=== PATIENT | female | born 1960 | race American Indian/Alaskan Native ===

== ENCOUNTER 2018-02-11 10:00 | Inpatient (IN) | payer BC, OTHER ==
[2018-02-11 10:21] VITALS: BMI 23.5
--- NOTE | 2018-02-11 10:40 | ED PDOC ---
HPI: General Adult Time Seen by Provider: 02/11/18 10:34 Chief Complaint (Nursing): Lower Extremity Problem/Injury Chief Complaint (Provider): left leg pain/back pain History Per: Patient History/Exam Limitations: no limitations Onset/Duration Of Symptoms: Waxing/Waning, Other (worsening pain x 3 months) Have you had recent travel within the past 21 days to any of the following countries: [place], [place], [place] or [place]?: No Current Symptoms Are (Timing): Still Present Severity: Severe Pain Scale Rating Of: 10 Additional Complaint(s): pt p/w + ~ 3 months onset of worsening left lower back pain, with pain intermittently radiating down her left leg, at times completely numb/tingling sensations noted from left knee down throughout to her left foot; pt states over the last 2 months the left leg pain has become more unbearable; pt states she had seen her PCP and was referred to Dr Juárez (neurosurg) for further eval, pt had refused spinal injections/pain management because she did not want to take any pain medications; pt states she has only been taking motrin/advil as needed daily; pt states she has also noted left groin numbness/tingling intermittently, but no urinary/bowel incontinence, no vaginal/rectal numbness/ tingling; pt denied fall/trauma/sick contact, no travel; pt denied Fever/chills/ sweats, no cp/sob/palpitations, no abd pain, no n/v, no urinary/bowel changes, no other complaints; pt was directed by PCP to come to ED for further eval. pt states her pain is severe at > 10/10 PCP: [place] neurosurg: Dr Juárez Past Medical History Reviewed: Historical Data, Nursing Documentation, Vital Signs Vital Signs: Last Vital Signs Temp 98.2 F 02/11/18 16:37 Pulse 74 02/11/18 16:37 Resp 20 02/11/18 16:37 BP 149/77 02/11/18 16:37 Pulse Ox 98 02/11/18 19:44 - Medical History PMH: Gall Bladder Disease (CHOLELITHIASIS), Hypothyroidism Denies: Chronic Kidney Disease - Family History Family History: States: No Known Family Hx - Living Arrangements Living Arrangements: With Family - Social History Current smoker - smoking cessation education provided: Yes Alcohol: None Drugs: Denies - Immunization History Hx Tetanus Toxoid Vaccination: No Hx Influenza Vaccination: No Hx Pneumococcal Vaccination: No - Home Medications Home Medications: Ambulatory Orders Medication Instructions Recorded Multivitamin [Multi-Vitamin Daily] 1 tab PO DAILY 02/11/18 - Allergies Allergies/Adverse Reactions: Allergies Allergy/AdvReac Type Severity Reaction Status Date / Time morphine AdvReac NAUSEA Verified 02/11/18 10:37 Review of Systems ROS Statement: Except As Marked, All Systems Reviewed And Found Negative Constitutional: Negative for: Fever, Chills, Sweats, Weakness Eyes: Negative for: Pain ENT: Negative for: Ear Pain Cardiovascular: Negative for: Chest Pain, Palpitations, Orthopnea Respiratory: Negative for: Cough, Shortness of Breath Gastrointestinal: Negative for: Nausea, Vomiting, Abdominal Pain Genitourinary Female: Negative for: Dysuria Musculoskeletal: Positive for: Back Pain, Leg Pain Skin: Negative for: Rash Neurological: Negative for: Weakness, Headache Physical Exam - Reviewed Nursing Documentation Reviewed: Yes Vital Signs Reviewed: Yes (elevated BP) - Physical Exam Appears: Positive for: Well (alert/awake, GCS = 15, oriented x 3, uncomfortable , moderate distress due to left back/leg pain, cooperative, interactive, follows command with ease), Non-toxic, Uncomfortable, In Acute Distress Head Exam: Positive for: ATRAUMATIC, NORMAL INSPECTION, NORMOCEPHALIC Skin: Positive for: Normal Color (cap refill < 1sec, no ulcerations, no petechiae, no rashes, no gross pallor), Warm, Dry. Negative for: Rash Eye Exam: Positive for: Normal appearance, EOMI, PERRL. Negative for: Nystagmus ENT: Positive for: Normal ENT Inspection Neck: Positive for: Normal, Painless ROM, Supple, Trachea Midline. Negative for : Decreased ROM Cardiovascular/Chest: Positive for: Regular Rate, Rhythm, Chest Non Tender, Other (+S1, +S2, no m/r/r). Negative for: Edema Respiratory: Positive for: Normal Breath Sounds, Other (CTA b/l, no w/r/r, no accessory muscle use noted, no tachypenia) Gastrointestinal/Abdominal: Positive for: Normal Exam, Bowel Sounds, Soft, Other (well ) Back: Positive for: Normal Inspection, Vertebral Tenderness (left lower lumbar tenderness noted), Decreased ROM Extremity: Positive for: Other (+ left SLR at 30degrees, no teresa's sign b/l, strength 5/5 grossly intact b/l, decr ROM to left leg due to pain; +1-2/5 DTR left knee, +2/5 DTR right knee; neurovasc intact b/l, + ambulatory but with difficulty; + limping when walking). Negative for: Pedal Edema, Deformity DTR - Knee (R): 2+ DTR - Knee (L): 1+ Neurologic/Psych: Positive for: Alert, hardwood floor sander II-XII, Oriented, Other (alert/awake , GCS = 15, oriented x 3, CNII-XII WNL, no facial asymmetries) - Laboratory Results Result Diagrams: 02/11/18 11:05 02/11/18 11:05 - ECG ECG: Positive for: Interpreted By Me, Viewed By Me Interpretation Of Abn EKG: NSR at 65 bpm, normal axis, no ectopy, abnl ST changes noted to V1-4, likely early repolorization, voltage criteria LVH; ABNL EKG; unchanged compare with old ekg 08/2017 O2 Sat by Pulse Oximetry: 98 Pulse Ox Interpretation: Normal - Radiology X-Ray: Interpreted by Me, Viewed By Me, Read By Radiologist - Progress ED Course And Treament: 1045am - pt is offered narcotics for pain control, currently refused 1050am - I spoke to Dr Gu, made aware, agrees with admission; would like labs and will evaluate patient in the hospital given patient persistent and intractable lower back pain, will recommend for admission pt is made aware of the medical recommendation pt agrees with admission 1111am HISTORY: weakness, intractable left leg pain COMPARISON: No prior. TECHNIQUE: Chest PA and lateral FINDINGS: LUNGS: No active pulmonary disease. PLEURA: No significant pleural effusion identified. No pneumothorax apparent. CARDIOVASCULAR: No radiographic findings to suggest acute or significant cardiovascular disease. OSSEOUS STRUCTURES: No significant abnormalities. VISUALIZED UPPER ABDOMEN: Normal. OTHER FINDINGS: None. IMPRESSION: No active disease. Re-evaluation Time: 10:55 Condition: Re-examined, Unchanged Medical Decision Making Medical Decision Making: Impression: intractable back pain i have consider all the differential diagnosis regarding pt's chief medical complaints/clinical findings, including but are not limited to: intractable back pain A/P: intractable back pain - labs - ua - supportive care - observe/reevaluation Disposition - Clinical Impression Clinical Impression: Intractable back pain, Elevated blood pressure reading, Ambulatory dysfunction - Patient ED Disposition Is Patient to be Admitted: Yes Discussed With : Lester Gu Doctor Will See Patient In The: ED Counseled Patient/Family Regarding: Studies Performed, Diagnosis, Need For Followup, Rx Given - Disposition Disposition Time: 10:40 Condition: STABLE - Pt Status Changed To: Hospital Disposition Of: Inpatient - Admit Certification Admit to Inpatient:: After my assessment, the patient will require hospitalization for at least two midnights. This is because of the severity of symptoms shown, intensity of services needed, and/or the medical risk in this patient being treated as an outpatient.
--- NOTE | 2018-02-11 11:12 | RAD ---
Date of service: 02/11/2018 HISTORY: weakness, intractable left leg pain COMPARISON: No prior. TECHNIQUE: Chest PA and lateral FINDINGS: LUNGS: No active pulmonary disease. PLEURA: No significant pleural effusion identified. No pneumothorax apparent. CARDIOVASCULAR: No radiographic findings to suggest acute or significant cardiovascular disease. OSSEOUS STRUCTURES: No significant abnormalities. VISUALIZED UPPER ABDOMEN: Normal. OTHER FINDINGS: None. IMPRESSION: No active disease.
[2018-02-11 11:22] LABS: BASO # 0.2 K/uL (0.0-0.2); BASO % 1.7 % (0.0-2.0); EOS # 0.2 K/uL (0.0-0.7); EOS % 1.2 % (0.0-4.0); HEMOGLOBIN 13.2 g/dL (12.0-16.0); LYMPH # 1.8 K/uL (1.0-4.3); LYMPH % 14.6 % (20.0-40.0); MEAN CELL VOLUME 104.7 fl (81.0-99.0); MEAN CORPUSCULAR HEMOGLOBIN 35.2 pg (27.0-31.0); MEAN CORPUSCULAR HGB CONC 33.6 g/dL (33.0-37.0); MEAN PLATELET VOLUME 10.2 fl (7.2-11.7); MONO # 1.2 K/uL (0.0-0.8); MONO % 9.8 % (0.0-10.0); NEUT # 9.2 K/uL (1.8-7.0); NEUT % 72.7 % (50.0-75.0); RBC 3.74 Mil/uL (3.80-5.20); RED CELL DISTRIBUTION WIDTH 16.5 % (11.5-14.5); WHITE BLOOD COUNT 12.6 K/uL (4.8-10.8)
[2018-02-11 11:34] LABS: PARTIAL THROMBOPLASTIN TIME 29.8 Seconds (25.6-37.1); PROTHROMBIN TIME 11.1 Seconds (9.8-13.1)
[2018-02-11 11:40] LABS: ALB/GLOB RATIO 1.4 (1.0-2.1); ALBUMIN 4.6 g/dL (3.5-5.0); ALT/SGPT 26 U/L (9-52); AST/SGOT 19 U/L (14-36); BLOOD UREA NITROGEN 14 mg/dl (7-17); CALCIUM 9.8 mg/dL (8.4-10.2); GFR AFRICAN-AMERICAN > 60; GFR NON-AFRICAN AMERICAN 57
--- NOTE | 2018-02-11 12:28 | CP.PCM.HP ---
History of Present Illness - History of Present Illness History of Present Illness: CC: low back pain HPI: 57 YO Female with PMHx of psoriasis and low back pain presents to [facility] ED for worsening of low back pain. Pt states that her low back pain started a few months ago, no trauma or no preceding events and has persisted since onset. Pt states that her pain radiates down her L leg, and pain is worse when sitting down. Endorsing numbness and tingling in the R pelvis, hip and down the leg. Pt taking Motrin for pain prn. No urinary or fecal incontinance. Denies dyspnea, chest pain, palpatations, n/v/d/c and fevers. PMHx: psoriasis (on laser therapy), hypothyroidism (not on any meds controlled per pt), HTN (meds d/tegan by MD a few months ago) Surghx: SH: , smoking 20+years, 0.5pack a day, ETOH social and denies illicit drug use Allergies: Morphine-pain and rash Present on Admission - Present on Admission Any Indicators Present on Admission: No Review of Systems - Constitutional Constitutional: absent: Chills, Fever - Cardiovascular Cardiovascular: absent: Chest Pain, Dyspnea, Palpitations - Respiratory Respiratory: absent: Cough, Dyspnea - Gastrointestinal Gastrointestinal: absent: Abdominal Pain - Musculoskeletal Musculoskeletal: Back Pain, Radiating Pain into Limb, Tingling - Neurological Neurological: absent: Dizziness, Syncope Past Patient History - Infectious Disease Hx of Infectious Diseases: None - Tetanus Immunizations Tetanus Immunization: Unknown - Past Medical History & Family History Past Medical History?: Yes - Past Social History Smoking Status: Light Smoker < 10 Cigarettes Daily Alcohol: None Drugs: Denies - CARDIAC Hx Cardiac Disorders: No - PULMONARY Hx Respiratory Disorders: Yes (SMOKES 1 PACK FOR 3 D) - NEUROLOGICAL Hx Neurological Disorder: No - HEENT Hx HEENT Problems: No - RENAL Hx Chronic Kidney Disease: No - ENDOCRINE/METABOLIC Hx Hypothyroidism: Yes - HEMATOLOGICAL/ONCOLOGICAL Hx Blood Disorders: No - INTEGUMENTARY Hx Dermatological Problems: Yes Hx Psoriasis: Yes - MUSCULOSKELETAL/RHEUMATOLOGICAL Hx Musculoskeletal Disorders: No Hx Falls: No - GASTROINTESTINAL Hx Gall Bladder Disease: Yes (CHOLELITHIASIS) - GENITOURINARY/GYNECOLOGICAL Hx Genitourinary Disorders: No - PSYCHIATRIC Hx Psychophysiologic Disorder: No Hx Substance Use: No - SURGICAL HISTORY Hx Surgeries: Yes Other/Comment: left toe sx, ingrown toenail 2015-EXOSTOSIS - ANESTHESIA Hx Anesthesia: Yes Hx Anesthesia Reactions: No Hx Malignant Hyperthermia: No Meds Allergies/Adverse Reactions: Allergies Allergy/AdvReac Type Severity Reaction Status Date / Time morphine AdvReac NAUSEA Verified 02/11/18 10:37 Physical Exam - Constitutional Appears: No Acute Distress - Head Exam Head Exam: ATRAUMATIC - Eye Exam Eye Exam: EOMI, Normal appearance - ENT Exam ENT Exam: Mucous Membranes Moist - Respiratory Exam Respiratory Exam: Clear to Auscultation Bilateral, NORMAL BREATHING PATTERN. absent: Wheezes - Cardiovascular Exam Cardiovascular Exam: REGULAR RHYTHM, +S1, +S2 - GI/Abdominal Exam GI & Abdominal Exam: Normal Bowel Sounds, Soft. absent: Tenderness - Extremities Exam Extremities exam: Positive for: normal inspection. Negative for: calf tenderness, pedal edema Additional comments: Straight leg pos in the L - Back Exam Back exam: NORMAL INSPECTION, vertebral tenderness (mild tenderness to palpation of the lumar spine, no skin changes. ). absent: muscle spasm, paraspinal tenderness, rash noted - Neurological Exam Neurological exam: Alert, Oriented x3 Results - Vital Signs Recent Vital Signs: Last Vital Signs Temp 98.2 F 02/11/18 10:21 Pulse 77 02/11/18 10:21 Resp 16 02/11/18 10:21 BP 187/81 H 02/11/18 10:21 Pulse Ox 98 02/11/18 12:06 - Labs Result Diagrams: 02/11/18 11:05 02/11/18 11:05 Labs: Laboratory Results - last 24 hr 02/11/18 02/11/18 02/11/18 11:05 11:05 11:05 WBC 12.6 H RBC 3.74 L Hgb 13.2 Hct 39.1 MCV 104.7 H MCH 35.2 H MCHC 33.6 RDW 16.5 H Plt Count 249 MPV 10.2 Neut % (Auto) 72.7 Lymph % (Auto) 14.6 L [place] % (Auto) 9.8 Eos % (Auto) 1.2 Baso % (Auto) 1.7 Neut # (Auto) 9.2 H Lymph # (Auto) 1.8 [place] # (Auto) 1.2 H Eos # (Auto) 0.2 Baso # (Auto) 0.2 PT 11.1 INR 1.0 APTT 29.8 Sodium 143 Potassium 3.9 Chloride 108 H Carbon Dioxide 24 Anion Gap 15 BUN 14 Creatinine 1.0 Est GFR ( Amer) > 60 Est GFR (Non-Af Amer) 57 Random Glucose 93 Calcium 9.8 Phosphorus 3.9 Magnesium 1.8 Total Bilirubin 0.5 AST 19 ALT 26 Alkaline Phosphatase 59 Total Protein 7.8 Albumin 4.6 Globulin 3.2 Albumin/Globulin Ratio 1.4 Blood Type Antibody Screen BBK History Checked 02/11/18 11:05 WBC RBC Hgb Hct MCV MCH MCHC RDW Plt Count MPV Neut % (Auto) Lymph % (Auto) [place] % (Auto) Eos % (Auto) Baso % (Auto) Neut # (Auto) Lymph # (Auto) [place] # (Auto) Eos # (Auto) Baso # (Auto) PT INR APTT Sodium Potassium Chloride Carbon Dioxide Anion Gap BUN Creatinine Est GFR ( Amer) Est GFR (Non-Af Amer) Random Glucose Calcium Phosphorus Magnesium Total Bilirubin AST ALT Alkaline Phosphatase Total Protein Albumin Globulin Albumin/Globulin Ratio Blood Type O NEGATIVE Antibody Screen Negative BBK History Checked No verified bt Assessment & Plan (1) Radiculopathy Status: Chronic (2) Elevated blood pressure reading Status: Acute (3) Intractable back pain Status: Acute - Assessment and Plan (Free Text) Assessment: Assessment/Plan: 57 YO Female with PMHx of psoriasis, HTN, hypothyroidism, radiculopathy, is admitted for acute on chronic low back pain. -plan as order -pain management as needed -blood work sig for leukocytosis without fever -VS sig for elevated bp, likely 2/2 to pain, cont to monitor may be antihypertensive if remain elevated -neurosurgery consulted -CXR no acute changes -EKG read by me no acute ST changes, sinus with rate of 63 -Pt is currently medically stable
--- NOTE | 2018-02-11 15:16 | CARD ---
APPROVED REPORT Date of service: 02/11/2018 EKG Measurement Heart [id number] <Conclusion> Normal sinus rhythm with sinus arrhythmia Voltage criteria for left ventricular hypertrophy Abnormal ECG
[2018-02-11] MEDS ORDERED: Sodium Chloride 0.9% 1,000 ML IV SCH (23:50)
[2018-02-12] MEDS ORDERED: Propofol 10 mg/ml Inj (20 ML) ONE (07:15)
[2018-02-12] MEDS ORDERED: ePHEDrine 50 mg/ml Inj ONE (07:15)
[2018-02-12] MEDS ORDERED: Succinylcholine 200 mg/10 ml Inj IV ONE (07:16)
[2018-02-12] MEDS ORDERED: Rocuronium 10 mg/ml (5 ml) ONE (07:16)
[2018-02-12] MEDS ORDERED: Midazolam 2 MG/2 ML VIAL ONE (07:16)
[2018-02-12] MEDS ORDERED: Lidocaine 4% (Laryng-O-Jet) Kit MM ONE (07:17)
[2018-02-12] MEDS ORDERED: GELATIN SPONGE,ABSORB/PORCINE 1 EACH SPONGE TP ONE (07:19)
[2018-02-12] MEDS ORDERED: Thrombin Topical 5,000 Int Units Spray Kit ONE (07:19)
[2018-02-12] MEDS ORDERED: Lactated Ringer's 1,000 ML IV ONE (07:42)
--- NOTE | 2018-02-12 07:55 | CP.PCM.CON ---
History of Present Illness - History of Present Illness History of Present Illness: Longstanding back pain with acute exacerbation recently. daily activities are severely limited. Ambulation is limited due to pain and gait disturbances from pain. admits to weakness, radiculopathy and paresthesias Also admits to some urinary hesitancy but not incontinence. denies bowel incontinence. Past Patient History - Infectious Disease Hx of Infectious Diseases: None - Tetanus Immunizations Tetanus Immunization: Unknown - Past Medical History & Family History Past Medical History?: Yes - Past Social History Alcohol: None Drugs: Denies - CARDIAC Hx Cardiac Disorders: No - PULMONARY Hx Respiratory Disorders: Yes (SMOKES 1 PACK FOR 3 D) - NEUROLOGICAL Hx Neurological Disorder: No - HEENT Hx HEENT Problems: No - RENAL Hx Chronic Kidney Disease: No - ENDOCRINE/METABOLIC Hx Hypothyroidism: Yes - HEMATOLOGICAL/ONCOLOGICAL Hx Blood Disorders: No - INTEGUMENTARY Hx Dermatological Problems: Yes Hx Psoriasis: Yes - MUSCULOSKELETAL/RHEUMATOLOGICAL Hx Musculoskeletal Disorders: Yes Hx Back Pain: Yes Hx Falls: No - GASTROINTESTINAL Hx Gall Bladder Disease: Yes (CHOLELITHIASIS) - GENITOURINARY/GYNECOLOGICAL Hx Genitourinary Disorders: No - PSYCHIATRIC Hx Psychophysiologic Disorder: No Hx Substance Use: No - SURGICAL HISTORY Hx Surgeries: Yes Other/Comment: left toe sx, ingrown toenail 2015-EXOSTOSIS - ANESTHESIA Hx Anesthesia: Yes Hx Anesthesia Reactions: No Hx Malignant Hyperthermia: No Has any member of the family had a problem w/ anesthesia?: No Meds Allergies/Adverse Reactions: Allergies Allergy/AdvReac Type Severity Reaction Status Date / Time morphine AdvReac NAUSEA Verified 02/11/18 10:37 - Medications Medications: Current Medications Acetaminophen (Tylenol 325mg Tab) 650 mg PO Q6 PRN PRN Reason: Pain, Mild (1-3) Sodium Chloride (Sodium Chloride 0.9%) 1,000 mls @ 120 mls/hr IV .Q8H20M JAMES Stop: 02/12/18 13:14 Last Admin: 02/12/18 00:01 Dose: 120 mls/hr Multivitamins/Minerals (Therapeutic-M Tab) 1 tab PO DAILY JAMES Physical Exam - Neurological Exam Additional comments: A&Ox3 CN intact MCCABE severely antalgic gait left IP: 4/5, quad: 4/5 HS: 4/5, PF and DF 5/5 sensation decreased to LT all throughout LLE positive SLR on left DTR 2+ on right pain ilicted throughout exam Results - Vital Signs Recent Vital Signs: Last Vital Signs Temp 97.9 F 02/12/18 00:12 Pulse 62 02/12/18 01:59 Resp 18 02/12/18 00:12 BP 196/81 H 02/12/18 01:59 Pulse Ox 95 02/12/18 00:12 - Labs Result Diagrams: 02/11/18 11:05 02/11/18 11:05 Labs: Laboratory Results - last 24 hr 02/11/18 02/11/18 02/11/18 11:05 11:05 11:05 WBC 12.6 H RBC 3.74 L Hgb 13.2 Hct 39.1 MCV 104.7 H MCH 35.2 H MCHC 33.6 RDW 16.5 H Plt Count 249 MPV 10.2 Neut % (Auto) 72.7 Lymph % (Auto) 14.6 L [place] % (Auto) 9.8 Eos % (Auto) 1.2 Baso % (Auto) 1.7 Neut # (Auto) 9.2 H Lymph # (Auto) 1.8 [place] # (Auto) 1.2 H Eos # (Auto) 0.2 Baso # (Auto) 0.2 PT 11.1 INR 1.0 APTT 29.8 Sodium 143 Potassium 3.9 Chloride 108 H Carbon Dioxide 24 Anion Gap 15 BUN 14 Creatinine 1.0 Est GFR ( Amer) > 60 Est GFR (Non-Af Amer) 57 Random Glucose 93 Calcium 9.8 Phosphorus 3.9 Magnesium 1.8 Total Bilirubin 0.5 AST 19 ALT 26 Alkaline Phosphatase 59 Total Protein 7.8 Albumin 4.6 Globulin 3.2 Albumin/Globulin Ratio 1.4 Triglycerides Cholesterol LDL Cholesterol Direct HDL Cholesterol TSH 3rd Generation Blood Type Blood Type Confirm Antibody Screen BBK History Checked 02/11/18 02/11/18 02/12/18 11:05 13:09 06:10 WBC RBC Hgb Hct MCV MCH MCHC RDW Plt Count MPV Neut % (Auto) Lymph % (Auto) [place] % (Auto) Eos % (Auto) Baso % (Auto) Neut # (Auto) Lymph # (Auto) [place] # (Auto) Eos # (Auto) Baso # (Auto) PT INR APTT Sodium Potassium Chloride Carbon Dioxide Anion Gap BUN Creatinine Est GFR ( Amer) Est GFR (Non-Af Amer) Random Glucose Calcium Phosphorus Magnesium Total Bilirubin AST ALT Alkaline Phosphatase Total Protein Albumin Globulin Albumin/Globulin Ratio Triglycerides 155 H Cholesterol 174 LDL Cholesterol Direct 82 HDL Cholesterol 41 TSH 3rd Generation 31.10 H Blood Type O NEGATIVE Blood Type Confirm O NEGATIVE Antibody Screen Negative BBK History Checked No verified bt Assessment & Plan - Assessment and Plan (Free Text) Assessment: Called to evaluate patient. Seen and noted to have severe LBP with LLE radiculopathy and sensory changes. She also endorses urinary hesitancy. On imaging, found to have large HNP at L4-L5 Suggested a L4-L5 laminectomy , possible microdiscectomy Plan: Lumbar laminectomy and microdiscectomy Risks, benefits and alternatives explained Risks such as infection, hemorrhage, CSF leak, weakness, sensory changes, failure of surgery, and or need for further surgery explained. Images reviewed with patient , all questions answered. Patient expressed understanding and wishes to proceed with proposed procedure.
[2018-02-12] MEDS ORDERED: Lidocaine 1% w Epi 1:100,000 Inj INJ ONE (08:07)
[2018-02-12 08:17] LABS: SQUAMOUS EPITHIAL 28 /hpf (0-5); URINE BILIRUBIN NEGATIVE (NEGATIVE); URINE BLOOD NEGATIVE (NEGATIVE); URINE CALCIUM OXALATE CRYSTALS MANY /hpf (<OCC); URINE CLARITY CLOUDY (Clear); URINE COLOR AMBER (YELLOW); URINE GLUCOSE (UA) NEG (Normal); URINE LEUKOCYTE ESTERASE NEG Leu/uL (Negative); URINE PROTEIN 30 mg/dL (NEGATIVE)
[2018-02-12] MEDS ORDERED: Dexamethasone 4 mg/1 ml ONE (08:21)
[2018-02-12] MEDS ORDERED: Bupivacaine HCl 0.25% PF (30 ml) Inj ONE (08:23)
[2018-02-12] MEDS ORDERED: HEMOSTATIC MATRIX 10 ML DIS.NEEDLE TOP ONE ×2 (08:33→08:55)
[2018-02-12] MEDS ORDERED: Absorbable Gelatin Sponge Size 12-7 TP ONE (08:41)
[2018-02-12] MEDS ORDERED: Thrombin Topical 5,000 Int Units Spray Kit TOP ONE (08:41)
[2018-02-12] MEDS ORDERED: Neostigmine 1:1000 (1 mg/ml) Inj ONE (08:45)
[2018-02-12] MEDS ORDERED: Bupivacaine HCl 0.25% PF (30 ml) Inj IJ ONE (09:00)
[2018-02-12] MEDS ORDERED: Sodium Chloride 0.9% 1,000 ML IV SCH (09:04)
--- NOTE | 2018-02-12 09:09 | PCM.SURG1 ---
Surgeon's Initial Post Op Note - Surgeon's Notes Surgeon: Rde Juárez MD [employer] Responder: Miguel SCHAEFER , Ashish SCHAEFER Type of Anesthesia: General Endo Anesthesia Administered By: Pantera VANESSA Pre-Operative Diagnosis: Lumbar herniated disc Operative Findings: calcified herniated disc left L4-L5 Post-Operative Diagnosis: same Operation Performed: Left L4-L5 laminotomy, microdiscectomy Specimen/Specimens Removed: none Estimated Blood Loss: EBL {In ML}: 20 Blood Products Given: N/A Drains Used: No Drains Post-Op Condition: Good Date of Surgery/Procedure: 02/12/18 Time of Surgery/Procedure: 07:30
[2018-02-12] MEDS ORDERED: Oxycodone/Acetaminophen 5/325 mg Tab PO PRN (09:15)
[2018-02-12] MEDS ORDERED: DiphenhydrAMINE 50 mg/ml Inj IVP PRN (09:28)
[2018-02-12] MEDS ORDERED: Acetaminophen IV 1,000 MG in IV SUPPLIES 0 ML IVPB ONE (09:45)
[2018-02-12 12:11] VITALS: RESP 20
--- NOTE | 2018-02-12 12:32 | RAD ---
Date of service: 02/12/2018 PROCEDURE: Intraoperative Fluoroscopy. HISTORY: LAMINECTOMY FINDINGS: Fluoroscopic assistance was provided for lumbar laminectomy. Please refer to the operative report from JIM Campos DR, MD. Total fluoroscopic time (continuous mode) utilized during the procedure (seconds) 4.9. Total exam DLP: 1.16 (mGy)
[2018-02-12] MEDS: Multivitamin With Minerals Tab PO SCH (12:42)
--- NOTE | 2018-02-12 14:00 | CP.PCM.PN ---
Subjective - Date & Time of Evaluation Date of Evaluation: 02/12/18 Time of Evaluation: 11:30 - Subjective Subjective: Laminectomy POD0 Pt seen and examined in PACU after surgery. Pr is alert, awake and doing well. BP remains elevated. Objective - Vital Signs/Intake and Output Vital Signs (last 24 hours): Temp Pulse Resp BP Pulse Ox 97.5 F L 64 20 150/77 94 L 02/12/18 13:13 02/12/18 13:13 02/12/18 13:13 02/12/18 13:13 02/12/18 13:13 Intake and Output: 02/12/18 02/12/18 06:59 18:59 Intake Total 1200 Balance 1200 - Medications Medications: Current Medications Amlodipine Besylate (Norvasc) 5 mg PO DAILY [facility] Cyclobenzaprine HCl (Flexeril) 5 mg PO TID PRN PRN Reason: Muscle spasm Last Admin: 02/12/18 12:42 Dose: 5 mg Docusate Sodium (Colace) 100 mg PO BID [facility] Hydralazine HCl (Apresoline) 10 mg IV Q6 PRN PRN Reason: Systolic Blood Pressure Last Admin: 02/12/18 10:50 Dose: 10 mg Hydromorphone HCl (Dilaudid) 0.5 mg IVP Q4 PRN PRN Reason: Pain, severe (8-10) Last Admin: 02/12/18 12:40 Dose: 0.5 mg Cefazolin Sodium 1 gm/ Sodium (Chloride) 100 mls @ 100 mls/hr IVPB Q8 JAMES PRN Reason: Protocol Stop: 02/13/18 17:01 Lactated Ringer's (Lactated Ringer's) 1,000 mls @ 125 mls/hr IV .Q8H [facility] Levothyroxine Sodium (Synthroid) 88 mcg PO DAILY@0630 [facility] Multivitamins/Minerals (Therapeutic-M Tab) 1 tab PO DAILY JAMES Last Admin: 02/12/18 12:42 Dose: 1 tab Ondansetron HCl (Zofran Inj) 4 mg IVP Q6 PRN PRN Reason: Nausea/Vomiting Last Admin: 02/12/18 13:48 Dose: 4 mg Oxycodone/Acetaminophen (Percocet 5/325 Mg Tab) 2 tab PO Q4 PRN PRN Reason: Pain, moderate (4-7) Stop: 02/15/18 09:15 Oxycodone/Acetaminophen (Percocet 5/325 Mg Tab) 1 tab PO Q4 PRN PRN Reason: Pain, Mild (1-3) Stop: 02/15/18 09:16 Pantoprazole Sodium (Protonix Ec Tab) 40 mg PO DAILY JAMES Sennosides (Senokot Tab) 17.2 mg PO HS JAMES - Labs Labs: 02/11/18 11:05 02/11/18 11:05 PT 11.1 Seconds (9.8-13.1) 02/11/18 11:05 INR 1.0 (0.9-1.2) 02/11/18 11:05 APTT 29.8 Seconds (25.6-37.1) 02/11/18 11:05 - Constitutional Appears: No Acute Distress - Eye Exam Eye Exam: EOMI, Normal appearance - ENT Exam ENT Exam: Mucous Membranes Moist - Respiratory Exam Respiratory Exam: Clear to Ausculation Bilateral. absent: Wheezes - Cardiovascular Exam Cardiovascular Exam: REGULAR RHYTHM, +S1, +S2 - GI/Abdominal Exam GI & Abdominal Exam: Soft, Hyperactive Bowel Sounds. absent: Tenderness - Extremities Exam Extremities Exam: Normal Inspection. absent: Calf Tenderness - Neurological Exam Neurological Exam: Alert, Awake Assessment and Plan (1) Radiculopathy Status: Chronic (2) Elevated blood pressure reading Status: Acute (3) Intractable back pain Status: Acute (4) Hypothyroidism Status: Acute (5) Hypertension Status: Chronic - Assessment and Plan (Free Text) Assessment: Assessment/Plan: 57 YO Female with PMHx of psoriasis, HTN, hypothyroidism, radiculopathy, is admitted for acute on chronic low back pain. S/p laminectomy POD0 -plan as order -pain management as needed -VS sig for elevated bp, will add amlodipine 5mg -neurosurgery; OR today -Blood work sig for elevated TSH; will start levo 88mg daily Pt seen and examined with Dr. Gu
[2018-02-12] MEDS: Lactated Ringer's 1,000 ML IV SCH ×2 (15:12→17:31)
[2018-02-12] MEDS: ceFAZolin 1 GM in Sodium Chloride 0.9% 100 ML IVPB SCH (17:25)
[2018-02-12 17:28] VITALS: O2SAT 97
[2018-02-12] MEDS: Oxycodone/Acetaminophen 5/325 mg Tab PO PRN (20:37)
--- NOTE | 2018-02-12 21:00 | OP ---
PROCEDURE DATE: 02/12/2018 PREOPERATIVE DIAGNOSIS: Herniated lumbar disk at L4-L5 on the left side. POSTOPERATIVE DIAGNOSIS: Herniated lumbar disk at L4-L5 on the left side. PROCEDURES: Left L4-L5 hemilaminotomy, medial facetectomy, removal of herniated disk. Fluoroscopy has been used. Microscope has been used. SURGEON: Red Juárez MD ELECTRICAL MANUFACTURING ENGINEER: Miguel Spain, physician blood and plasma laboratory assistant. Miguel Spain who is a physician blood and plasma laboratory assistant helped me to perform the surgery, stayed throughout the case from the beginning to the end. DESCRIPTION OF PROCEDURE: The patient was brought to the operating room, anesthetized with general endotracheal anesthesia, and placed in a prone position on the Indra table. Care was taken to protect all pressure points. Back of the lumbar area was thoroughly prepped and draped in standard sterile manner after marking for the skin incision for lumbar laminectomy at L4-L5. After prepping and draping the area, the skin has been incised. Bleeding skins had been controlled with bipolar oven loader. After using a Bovie oven loader, paraspinal muscles had been detached, attachments of spinous process, lamina of L4-L5 on the left side. A Chey retractor has been applied to alter the facet joint of L4-L5. Confirmation was done with the help of fluoroscopy. Under microscopic magnification and illumination, the lamina of L4-L5 and medial part of the L4-L5 had been drilled. Drilling was continued until top and bottom of the ligamentum flavum had seen. Drilling was also continued on the medial part of the facets until the turn of ligamentum flavum had been seen. Once this had been done, thinned out the lamina, medial part of the facets and ligamentum flavum had been removed, decompressing this area. Nerve root and neural tube retracted medially. There was a large fragment of disk noted. The annulus has been separate by # 11 blade. The annulus has been incised by using #11 blade. By using a fine Kerrison punch, all this partly extruded disk fragment along with the other disk fragment has been removed. Microdiscectomy has been performed, decompressing this area. After that, hemostasis best achieved. Fascia closed interspinous ligaments and spinous process with 1 Vicryl, subcutaneous tissue with 3 Vicryl. Skin has been closed with intradermal 3 Vicryl stitches. The patient tolerated the procedure. After the procedure, mobilized to the recovery room in stabilized condition. Red Juárez MD
[2018-02-13] MEDS: ceFAZolin 1 GM in Sodium Chloride 0.9% 100 ML IVPB SCH ×2 (00:16→09:36)
[2018-02-13] MEDS: Lactated Ringer's 1,000 ML IV SCH ×2 (03:00→09:39)
[2018-02-13] MEDS: Oxycodone/Acetaminophen 5/325 mg Tab PO PRN ×2 (04:25→09:39)
[2018-02-13] MEDS ORDERED: Levothyroxine 88 MCG TAB PO SCH (06:30)
[2018-02-13 07:39] VITALS: BP 153/70; PULSE 62; TEMP 98.4
--- NOTE | 2018-02-13 08:06 | CP.PCM.PN ---
Subjective - Date & Time of Evaluation Date of Evaluation: 02/13/18 Time of Evaluation: 07:15 - Subjective Subjective: Patient was seen and examined at bedside comfortable. Pain is well controlled. No acute events overnight. Objective - Vital Signs/Intake and Output Vital Signs (last 24 hours): Temp Pulse Resp BP Pulse Ox 98.4 F 62 20 153/70 H 97 02/13/18 07:37 02/13/18 07:37 02/13/18 07:37 02/13/18 07:37 02/13/18 07:37 - Medications Medications: Current Medications Amlodipine Besylate (Norvasc) 5 mg PO DAILY [facility] Last Admin: 02/12/18 15:11 Dose: 5 mg Cyclobenzaprine HCl (Flexeril) 5 mg PO TID PRN PRN Reason: Muscle spasm Last Admin: 02/12/18 12:42 Dose: 5 mg Docusate Sodium (Colace) 100 mg PO BID [facility] Last Admin: 02/12/18 17:30 Dose: 100 mg Hydromorphone HCl (Dilaudid) 0.5 mg IVP Q4 PRN PRN Reason: Pain, severe (8-10) Last Admin: 02/12/18 12:40 Dose: 0.5 mg Cefazolin Sodium 1 gm/ Sodium (Chloride) 100 mls @ 100 mls/hr IVPB Q8 JAMES PRN Reason: Protocol Stop: 02/13/18 17:01 Last Admin: 02/13/18 00:16 Dose: 100 mls/hr Lactated Ringer's (Lactated Ringer's) 1,000 mls @ 125 mls/hr IV .Q8H [facility] Last Admin: 02/13/18 03:00 Dose: 125 mls/hr Levothyroxine Sodium (Synthroid) 88 mcg PO DAILY@0630 [facility] Last Admin: 02/13/18 06:37 Dose: Not Given Losartan Potassium (Cozaar) 100 mg PO DAILY [facility] Multivitamins/Minerals (Therapeutic-M Tab) 1 tab PO DAILY [facility] Last Admin: 02/12/18 12:42 Dose: 1 tab Ondansetron HCl (Zofran Inj) 4 mg IVP Q6 PRN PRN Reason: Nausea/Vomiting Last Admin: 02/12/18 13:48 Dose: 4 mg Oxycodone/Acetaminophen (Percocet 5/325 Mg Tab) 2 tab PO Q4 PRN PRN Reason: Pain, moderate (4-7) Stop: 02/15/18 09:15 Last Admin: 02/13/18 04:25 Dose: 2 tab Oxycodone/Acetaminophen (Percocet 5/325 Mg Tab) 1 tab PO Q4 PRN PRN Reason: Pain, Mild (1-3) Stop: 02/15/18 09:16 Pantoprazole Sodium (Protonix Ec Tab) 40 mg PO DAILY JAMES Sennosides (Senokot Tab) 17.2 mg PO HS JAMES Last Admin: 02/12/18 21:42 Dose: 17.2 mg - Labs Labs: 02/11/18 11:05 02/11/18 11:05 PT 11.1 Seconds (9.8-13.1) 02/11/18 11:05 INR 1.0 (0.9-1.2) 02/11/18 11:05 APTT 29.8 Seconds (25.6-37.1) 02/11/18 11:05 - Back Exam Additional comments: Mild swelling, mild tenderness Dressings CDI, no drainage Gross NVI distally b/l pedal pulses intact b/l Assessment and Plan (1) Lumbar disc herniation Assessment & Plan: POD#1 s/p L L4-5 laminotomy doing well -pain controlled -PT/OT WBAT -stable from neurosurgical standpoint to discharge -f/u in office next Saturday -above d/w Dr. Juárez in agreement Status: Acute
[2018-02-13] MEDS ORDERED: Pantoprazole 40 mg EC Tab PO SCH (09:00)
[2018-02-13] MEDS: Multivitamin With Minerals Tab PO SCH (09:40)
--- NOTE | 2018-02-13 12:51 | CP.PCM.DIS ---
Provider - Provider Date of Admission: 02/11/18 10:40 Attending physician: Lester Gu MD Time Spent in preparation of Discharge (in minutes): 20 Diagnosis - Discharge Diagnosis (1) Radiculopathy Status: Chronic (2) Elevated blood pressure reading Status: Acute (3) Intractable back pain Status: Acute (4) Hypothyroidism Status: Acute (5) Hypertension Status: Chronic Hospital Course - Lab Results Lab Results: Most Recent Lab Values WBC 12.6 K/uL (4.8-10.8) H 02/11/18 11:05 RBC 3.74 Mil/uL (3.80-5.20) L 02/11/18 11:05 Hgb 13.2 g/dL (12.0-16.0) 02/11/18 11:05 Hct 39.1 % (34.0-47.0) 02/11/18 11:05 MCV 104.7 fl (81.0-99.0) H 02/11/18 11:05 MCH 35.2 pg (27.0-31.0) H 02/11/18 11:05 MCHC 33.6 g/dL (33.0-37.0) 02/11/18 11:05 RDW 16.5 % (11.5-14.5) H 02/11/18 11:05 Plt Count 249 K/uL (130-400) 02/11/18 11:05 MPV 10.2 fl (7.2-11.7) 02/11/18 11:05 Neut % (Auto) 72.7 % (50.0-75.0) 02/11/18 11:05 Lymph % (Auto) 14.6 % (20.0-40.0) L 02/11/18 11:05 Tift % (Auto) 9.8 % (0.0-10.0) 02/11/18 11:05 Eos % (Auto) 1.2 % (0.0-4.0) 02/11/18 11:05 Baso % (Auto) 1.7 % (0.0-2.0) 02/11/18 11:05 Neut # (Auto) 9.2 K/uL (1.8-7.0) H 02/11/18 11:05 Lymph # (Auto) 1.8 K/uL (1.0-4.3) 02/11/18 11:05 Tift # (Auto) 1.2 K/uL (0.0-0.8) H 02/11/18 11:05 Eos # (Auto) 0.2 K/uL (0.0-0.7) 02/11/18 11:05 Baso # (Auto) 0.2 K/uL (0.0-0.2) 02/11/18 11:05 PT 11.1 Seconds (9.8-13.1) 02/11/18 11:05 INR 1.0 (0.9-1.2) 02/11/18 11:05 APTT 29.8 Seconds (25.6-37.1) 02/11/18 11:05 Sodium 143 mmol/l (132-148) 02/11/18 11:05 Potassium 3.9 MMOL/L (3.6-5.0) 02/11/18 11:05 Chloride 108 mmol/L (98-107) H 02/11/18 11:05 Carbon Dioxide 24 mmol/L (22-30) 02/11/18 11:05 Anion Gap 15 (10-20) 02/11/18 11:05 BUN 14 mg/dl (7-17) 02/11/18 11:05 Creatinine 1.0 mg/dl (0.7-1.2) 02/11/18 11:05 Est GFR ( Amer) > 60 02/11/18 11:05 Est GFR (Non-Af Amer) 57 02/11/18 11:05 Random Glucose 93 mg/dL (65-105) 02/11/18 11:05 Hemoglobin A1c 6.0 % (4.2-6.5) 02/12/18 06:10 Calcium 9.8 mg/dL (8.4-10.2) 02/11/18 11:05 Phosphorus 3.9 mg/dl (2.5-4.5) 02/11/18 11:05 Magnesium 1.8 MG/DL (1.6-2.3) 02/11/18 11:05 Total Bilirubin 0.5 mg/dl (0.2-1.3) 02/11/18 11:05 AST 19 U/L (14-36) 02/11/18 11:05 ALT 26 U/L (9-52) 02/11/18 11:05 Alkaline Phosphatase 59 U/L (38-126) 02/11/18 11:05 Total Protein 7.8 G/DL (6.3-8.2) 02/11/18 11:05 Albumin 4.6 g/dL (3.5-5.0) 02/11/18 11:05 Globulin 3.2 gm/dL (2.2-3.9) 02/11/18 11:05 Albumin/Globulin Ratio 1.4 (1.0-2.1) 02/11/18 11:05 Triglycerides 155 mg/DL (0-149) H 02/12/18 06:10 Cholesterol 174 mg/dL (0-199) 02/12/18 06:10 LDL Cholesterol Direct 82 mg/dL (0-129) 02/12/18 06:10 HDL Cholesterol 41 MG/DL (30-70) 02/12/18 06:10 TSH 3rd Generation 31.10 mIU/ML (0.46-4.68) H 02/12/18 06:10 Urine Color Tracy (YELLOW) 02/12/18 07:00 Urine Clarity Cloudy (Clear) 02/12/18 07:00 Urine pH 5.0 (5.0-8.0) 02/12/18 07:00 Ur Specific Nunda 1.033 (1.003-1.030) H 02/12/18 07:00 Urine Protein 30 mg/dL (NEGATIVE) 02/12/18 07:00 Urine Glucose (UA) Neg mg/dL (Normal) 02/12/18 07:00 Urine Ketones Trace mg/dL (NEGATIVE) 02/12/18 07:00 Urine Blood Negative (NEGATIVE) 02/12/18 07:00 Urine Nitrate Negative (NEGATIVE) 02/12/18 07:00 Urine Bilirubin Negative (NEGATIVE) 02/12/18 07:00 Urine Urobilinogen 2.0 mg/dL (0.2-1.0) H 02/12/18 07:00 Ur Leukocyte Esterase Neg Stoney/uL (Negative) 02/12/18 07:00 Urine RBC (Auto) 15 /hpf (0-3) H 02/12/18 07:00 Ur Squamous Epith Cells 28 /hpf (0-5) H 02/12/18 07:00 Calcium Oxalate Crystal Many /hpf (<OCC) H 02/12/18 07:00 Blood Type O NEGATIVE 02/11/18 11:05 Blood Type Confirm O NEGATIVE 02/11/18 13:09 Antibody Screen Negative 02/11/18 11:05 BBK History Checked No verified bt 02/11/18 11:05 - Hospital Course Hospital Course: 57 YO Female with PMHx of psoriasis, HTN, hypothyroidism, radiculopathy, is admitted for acute on chronic low back pain. Neurosurgery was consulted and pt was found to have L4-L5 lumbar herniated disc. She subsequently underwent L4-L5 Laminectomy, POD 1. Pt is doing well, ambulating, working with PT, tolerating PO diet and remains hemodynamically stable. During the admission, pt was found to have elevated TSH BPs. Started on PO meds for BP control and hypothyroidism. Pt okay per neurosurgery to be d/c home, will follow up with in clinic and with PMD in 1 week. Discharge Exam - Head Exam Head Exam: ATRAUMATIC, NORMAL INSPECTION, NORMOCEPHALIC - Eye Exam Eye Exam: EOMI - ENT Exam ENT Exam: Mucous Membranes Moist - Respiratory Exam Respiratory Exam: Clear to PA & Lateral. absent: Wheezes - Cardiovascular Exam Cardiovascular Exam: REGULAR RHYTHM, +S1, +S2 - GI/Abdominal Exam GI & Abdominal Exam: Normal Bowel Sounds, Soft. absent: Tenderness - Extremities Exam Extremities exam: normal inspection - Neurological Exam Neurological exam: Alert Discharge Plan - Discharge Medications Prescriptions: amLODIPine [Norvasc] 5 mg PO DAILY #30 tab Cyclobenzaprine [Flexeril] 5 mg PO TID PRN #30 tab PRN Reason: Muscle Spasm Levothyroxine [Synthroid] 88 mcg PO DAILY@0630 #30 tab Losartan [Cozaar] 100 mg PO DAILY #30 tab oxyCODONE/Acetaminophen [Percocet 5/325 mg Tab] 1 tab PO Q4 PRN #30 tab PRN Reason: Pain, Moderate (4-7) - Follow Up Plan Condition: STABLE Disposition: HOME/ ROUTINE Instructions: Laminectomy (DC), Postspine Surgery Precautions Additional Instructions: pt . cleared for discharge to [facility] today by and E rx sent to [facility] pharmacy f/u with in 1 week f/u with PMD in [place] in 1 week f/u TSH fx/ labs Referrals: Red Juárez MD [Staff Provider] - Lester Gu MD [Family Provider] -
== END 2018-02-13 13:53 | disposition home or self-care (01) | DRG 520 ==
LOC: H.ER 10:00 → H.ERHOLD 10:40 → H.MEDSURG1 13:31
PROVIDERS: ADMIT Family Medicine; ATTEND Family Medicine
PROC: 0ST20ZZ Resection of Lumbar Vertebral Disc, Open Approach (ICD-10-PCS; principal; 2018-02-12 07:45)
DX: M51.16 Intervertebral disc disorders with radiculopathy, lumbar region (principal); G89.29 Other chronic pain; D72.829 Elevated white blood cell count, unspecified; E03.9 Hypothyroidism, unspecified; I10 Essential (primary) hypertension; F17.200 Nicotine dependence, unspecified, uncomplicated

== ENCOUNTER 2018-05-26 11:07 | Emergency (ER) | payer MEDICAID, OTHER ==
[2018-05-26 11:07] VITALS: BMI 23.5
[2018-05-26 11:31] VITALS: O2SAT 99
[2018-05-26] MEDS ORDERED: Sodium Chloride 0.9% 1,000 ML IV SCH (12:45)
--- NOTE | 2018-05-26 12:48 | ED PDOC ---
HPI: General Adult Time Seen by Provider: 05/26/18 12:07 Chief Complaint (Nursing): Flu-like Symptoms Chief Complaint (Provider): Body pain History Per: Patient History/Exam Limitations: no limitations Onset/Duration Of Symptoms: Days (x3) Additional Complaint(s): 58 year old female, with a past medical history of psoriasis, presents to the ED for evaluation of body aches and diffuse joint pain since Saturday. Patient states that since she lost her insurance 3 months ago, and as a result she has been off psoriasis treatment as she was unable to follow up with a cyber special agent. Patient has not taken medications for symptoms but is requesting prescription medication for itching. Denies fever, nausea, vomiting, diarrhea, abdominal pain, urinary symptoms, chest pain, cough, SOB, recent travel, sick contacts, headache, or dizziness. She does report associated chills. PMD: Pierre Nichols Past Medical History Reviewed: Historical Data, Nursing Documentation, Vital Signs (psoriasis) Vital Signs: Last Vital Signs Temp 98.8 F 05/26/18 11:28 Pulse 92 H 05/26/18 11:28 Resp 18 05/26/18 11:28 BP 167/80 H 05/26/18 11:28 Pulse Ox 99 05/26/18 11:28 - Medical History PMH: Gall Bladder Disease (CHOLELITHIASIS), Hypothyroidism (Thinks its normal now because not on medications) - Surgical History Surgical History: Other surgeries: Lumbar fusion, procedure to toe for ingrown toenail - Family History Family History: States: Unknown Family Hx - Home Medications Home Medications: Ambulatory Orders Medication Instructions Recorded RX: Multivitamin [Multi-Vitamin 1 tab PO DAILY 02/11/18 Daily] RX: Cyclobenzaprine [Flexeril] 5 mg PO TID PRN #30 tab 02/13/18 RX: Levothyroxine [Synthroid] 88 mcg PO DAILY@0630 #30 tab 02/13/18 RX: Losartan [Cozaar] 100 mg PO DAILY #30 tab 02/13/18 RX: amLODIPine [Norvasc] 5 mg PO DAILY #30 tab 02/13/18 RX: oxyCODONE/Acetaminophen 1 tab PO Q4 PRN #30 tab 02/13/18 [Percocet 5/325 mg Tab] Acetaminophen [Acetaminophen 8 650 mg PO Q8 PRN #21 tablet.er 05/26/18 Hour] Calamine/Zinc Oxide [Calamine 1 applic TOP BID PRN #2 bottle 05/26/18 Lotion] DiphenhydrAMINE [Benadryl] 50 mg PO Q6 PRN #30 cap 05/26/18 Meloxicam [Mobic] 15 mg PO DAILY PRN #14 tab 05/26/18 - Allergies Allergies/Adverse Reactions: Allergies Allergy/AdvReac Type Severity Reaction Status Date / Time morphine AdvReac NAUSEA Verified 02/11/18 10:37 Review of Systems ROS Statement: Except As Marked, All Systems Reviewed And Found Negative Constitutional: Positive for: Chills, Other (Bodyaches and diffuse joint pain). Negative for: Fever Cardiovascular: Negative for: Chest Pain Respiratory: Negative for: Cough, Shortness of Breath Gastrointestinal: Negative for: Nausea, Vomiting, Abdominal Pain, Diarrhea Neurological: Negative for: Headache, Dizziness Physical Exam - Reviewed Nursing Documentation Reviewed: Yes Vital Signs Reviewed: Yes - Physical Exam Comments: GENERAL APPEARANCE: Patient is awake, alert, oriented x 3, uncomfortable appearing. SKIN: Warm, dry. Diffuse psoriasis outbreak (-) erythema, or warmth (-) excoriations EYES: (-) conjunctival pallor. NECK: Supple, FROM (-) tenderness, (-) stiffness, (-) lymphadenopathy. CHEST AND RESPIRATORY: (-) wheezing; (-) rales, (-) rhonchi, (-) rub; breath sounds equal bilaterally. Respirations even and nonlabored. HEART AND CARDIOVASCULAR: (-) irregularity ABDOMEN AND GI: Soft; (-) tenderness (-) guarding (-) distention (-) CVA tenderness. BACK: (-) midline tenderness EXTREMITIES: Diffuse tenderness to both upper and lower extremities. No limitation of motion. (-) erythema (-) cellulitis (-) warmth NEURO AND PSYCH: Mental status as above; (-) focal findings. Gait: steady. Speech: clear. (-) facial asymmetry - Laboratory Results Result Diagrams: 05/26/18 13:32 05/26/18 13:32 - ECG O2 Sat by Pulse Oximetry: 99 (RA) Pulse Ox Interpretation: Normal Medical Decision Making Medical Decision Making: Initial Impression: Generalized body aches, to consider psoriatic arthritis Initial Plan: --CMP --Urine dip --CBC --Sodium 1000mL IV --Toradol 30mg IV --Tylenol 975mg PO --Influenze A B stat 1400 CBC and CMP reviewed. 1440 Influenza: Negative Repeat BP: 142/81 Repeat HR: 83 On re-evaluation, patient reports improvement of symptoms. On exam, patient remains AAOx3, in no acute distress. Lungs clear to auscultation, cardiac RRR, abdomen soft, non-tender, repeat neuro exam shows no focal findings. Vitals stable. Lab/Diagnostic results d/w the patient in great detail. Diagnosis of psoriasis, body aches/ joint pain, to consider psoriatic arthritis d/w the patient. Based on history, exam and diagnostic results, plan will be for outpatient follow up with clinic/derm. Patient instructed to follow-up with pmd / referral provided / the clinic in 1- 2 days without fail. Advised to take medication as prescribed. Return to the emergency room at any time for any new or worsening symptoms. Patient states she fully agrees with and understands discharge instructions. States that she agrees with the plan and disposition. Verbalized and repeated discharge inst ructions and plan. I have given the patient opportunity to ask any additional questions. ------ Scribe Attestation: Documented by Michael Hatfield acting as a scribe for Julieth SCHAEFER Provider Scribe Attestation: All medical record entries made by the Scribe were at my direction and personally dictated by me. I have reviewed the chart and agree that the record accurately reflects my personal performance of the history, physical exam, medical decision making, and the department course for this patient. I have also personally directed, reviewed, and agree with the discharge instructions and disposition. Disposition - Clinical Impression Clinical Impression: Body aches, Psoriasis, Arthritis, Joint pain - Patient ED Disposition Is Patient to be Admitted: No Counseled Patient/Family Regarding: Studies Performed, Diagnosis, Need For Followup, Rx Given - Disposition Referrals: Pierre Floyd MD [Family Provider] - [facility] [Outside] Disposition: Routine/Home Disposition Time: 14:45 Condition: IMPROVED Additional Instructions: The emergency medical care you received today was directed at your acute symp toms. If you were prescribed any medication, please fill it and take as directed. It may take several days for your symptoms to resolve. Return to the Emergency Department if your symptoms worsen, do not improve, or if you have any other problems. Please contact your doctor in 2 days for re-evaluation and follow up / or call one of the physicians/clinics you have been referred to that are listed on the Patient Visit Information form that is included in your discharge packet. Bring any paperwork you were given at discharge with you along with any medications you are taking to your follow up visit. Our treatment cannot replace ongoing medical care by a primary care provider (PCP) outside of the emergency department. Prescriptions: Acetaminophen [Acetaminophen 8 Hour] 650 mg PO Q8 PRN #21 tablet.er PRN Reason: Pain, Moderate (4-7) Calamine/Zinc Oxide [Calamine Lotion] 1 applic TOP BID PRN #2 bottle PRN Reason: Itching / Pruritus DiphenhydrAMINE [Benadryl] 50 mg PO Q6 PRN #30 cap PRN Reason: Itching / Pruritus Meloxicam [Mobic] 15 mg PO DAILY PRN #14 tab PRN Reason: Pain, Moderate (4-7) Instructions: Psoriasis, Osteoarthritis (DC), Acute Pain, Adult, Arthritis and Exercise, Joint Pain Forms: [facility] (German) Print Language: UGANDAN - POA Present On Arrival: None Results - Lab Results Lab Results: 05/26/18 05/26/18 05/26/18 13:32 13:32 13:32 WBC 14.1 H RBC 3.78 L Hgb 12.4 Hct 38.9 MCV 103.0 H MCH 32.9 H MCHC 32.0 L RDW 16.8 H Plt Count 269 MPV 11.0 Neut % (Auto) 76.8 H Lymph % (Auto) 9.3 L [place] % (Auto) 11.1 H Eos % (Auto) 1.8 Baso % (Auto) 1.0 Neut # (Auto) 10.9 H Lymph # (Auto) 1.3 [place] # (Auto) 1.6 H Eos # (Auto) 0.3 Baso # (Auto) 0.1 Neutrophils % (Manual) Pending Lymphocytes % (Manual) Pending Monocytes % (Manual) Pending Platelet Estimate Pending Sodium 139 Potassium 3.4 L Chloride 103 Carbon Dioxide 25 Anion Gap 14 BUN 9 Creatinine 0.8 Est GFR ( Amer) > 60 Est GFR (Non-Af Amer) > 60 Random Glucose 85 Calcium 9.1 Total Bilirubin 0.5 AST 21 ALT 39 Alkaline Phosphatase 101 Total Protein 7.4 Albumin 3.8 Globulin 3.6 Albumin/Globulin Ratio 1.1 Influenza Typ A,B (EIA) Negative for flu a/b
[2018-05-26 13:43] LABS: BASO # 0.1 K/uL (0.0-0.2); EOS # 0.3 K/uL (0.0-0.7); EOS % 1.8 % (0.0-4.0); HEMOGLOBIN 12.4 g/dL (12.0-16.0); LYMPH # 1.3 K/uL (1.0-4.3); LYMPH % 9.3 % (20.0-40.0); MEAN CORPUSCULAR HEMOGLOBIN 32.9 pg (27.0-31.0); MONO # 1.6 K/uL (0.0-0.8); MONO % 11.1 % (0.0-10.0); NEUT # 10.9 K/uL (1.8-7.0); NEUT % 76.8 % (50.0-75.0); NRBC % 0.1 % (0.0-0.0); PLATELET COUNT 269 K/uL (130-400); RBC 3.78 Mil/uL (3.80-5.20); RED CELL DISTRIBUTION WIDTH 16.8 % (11.5-14.5); WHITE BLOOD COUNT 14.1 K/uL (4.8-10.8)
[2018-05-26 13:57] LABS: ALB/GLOB RATIO 1.1 (1.0-2.1); ALBUMIN 3.8 g/dL (3.5-5.0); ALT/SGPT 39 U/L (9-52); AST/SGOT 21 U/L (14-36); BLOOD UREA NITROGEN 9 mg/dl (7-17); CALCIUM 9.1 mg/dL (8.4-10.2); GFR NON-AFRICAN AMERICAN > 60
[2018-05-26 14:43] VITALS: BP 142/81; PULSE 83; RESP 15; TEMP 98.4
[2018-05-26 17:27] LABS: BANDS 3 % (0-2); BASOPHIL 1 % (0-2); EOSINOPHIL 3 % (0-7); LYMPHOCYTE 12 % (20-50); MONOCYTE 11 % (0-10); NEUTROPHIL 70 % (42-75); TOTAL CELLS COUNTED 100
[2018-05-26 17:29] LABS: PLATELET ESTIMATE NORMAL (NORMAL)
[2018-05-26 17:30] LABS: ANISOCYTOSIS SLIGHT
== END 2018-05-26 14:46 | disposition home or self-care (01) ==
LOC: H.ER 11:07
DX: M79.10 Myalgia, unspecified site (principal); L40.9 Psoriasis, unspecified; M19.90 Unspecified osteoarthritis, unspecified site; E03.9 Hypothyroidism, unspecified; Z88.5 Allergy status to narcotic agent
CPT/HCPCS: 80053; 85025; 87804; 96374; 99283; J1885; J7030